=== PATIENT | male | born 1995 | race Caucasian/White ===

== ENCOUNTER 2018-06-12 09:19 | Outpatient (CLI) | payer OTHER | END 2018-06-12 09:26 | disposition home or self-care (01) | LOC: LAB 09:19 | DX: Z13.1 Encounter for screening for diabetes mellitus (principal); D69.6 Thrombocytopenia, unspecified; R03.0 Elevated blood-pressure reading, without diagnosis of hypertension ==

== ENCOUNTER → 2020-05-11 12:38 | Outpatient (CLI) | payer OTHER | END | disposition home or self-care (01) | LOC: LAB 12:07 | DX: B34.2 Coronavirus infection, unspecified (principal) ==

== ENCOUNTER 2020-05-20 08:35 | Outpatient (CLI) | payer OTHER | END 2020-05-20 15:00 | disposition home or self-care (01) | LOC: LAB 08:35 | DX: Z20.828 Contact with and (suspected) exposure to other viral communicable diseases (principal) ==

== ENCOUNTER 2020-07-15 06:23 | Outpatient (CLI) | payer OTHER | END 2020-07-15 06:28 | disposition home or self-care (01) | LOC: LAB 06:23 | DX: Z03.818 Encounter for observation for suspected exposure to other biological agents ruled out (principal) ==